=== PATIENT | female | born 1985 | race Caucasian/White ===

== ENCOUNTER 2018-01-10 16:48 | Emergency (ER) | payer SELFPAY ==
[2018-01-10 17:51] LABS: BASOPHILS 0.4 % (0-2); EOSINOPHILS 0.6 % (0-7); HEMATOCRIT 34.9 % (36.0-48.0); HEMOGLOBIN 11.2 g/dL (12-16); LYMPHOCYTES 32.4 % (15-50); MCH 27.1 pg (26.0-34.0); MCHC 32.1 g/dL (31.0-37.0); MCV 84.5 fL (80.0-100.0); MEAN PLATELET VOLUME 9.4 fL (7.4-10.4); MONOCYTES 9.2 % (2-11); NEUTROPHILS 57.4 % (40-80); PLATELET COUNT 270 10x3/uL (130-400); RBC 4.13 10x6/uL (4.00-5.40); RDW 14.9 % (11.5-14.5); WBC 4.9 10x3/uL (4.8-10.8)
[2018-01-10 18:02] LABS: HCG SERUM NEGATIVE (NEGATIVE)
== END 2018-01-10 18:50 | disposition home or self-care (01) ==
LOC: D.ER 16:48
PROVIDERS: Emergency Medicine
DX: O03.9 Complete or unspecified spontaneous abortion without complication (principal); I10 Essential (primary) hypertension

== ENCOUNTER 2018-10-16 21:33 | Emergency (ER) | payer SELFPAY ==
[~2018-10-16] VITALS: Ht 162.6 cm; Wt 69.8 kg
[2018-10-16 21:45] VITALS: Ht 162.6 cm; Wt 69.8 kg
[2018-10-16 22:31] LABS: APPEARANCE CLEAR (CLEAR); COLOR ORANGE (YELLOW)
[2018-10-16 22:32] LABS: BACTERIA FEW /hpf (NONE SEEN); BILIRUBIN NEGATIVE (NEGATIVE); EPITHELIAL CELLS >50 /hpf (0-5); GLUCOSE NEGATIVE (NEGATIVE); KETONE NEGATIVE (NEGATIVE); NITRITE POSITIVE (NEGATIVE); PROTEIN NEGATIVE (NEGATIVE); RED CELLS - URINE OCC /hpf (0-5); UROBILINOGEN NORMAL (NORMAL); WHITE CELLS - URINE >50 /hpf (0-5)
[2018-10-16] MEDS ORDERED: NAPROXEN SODIU550 M1 PO (22:48)
[2018-10-16] MEDS ORDERED: MACROBID100 MG PO (22:48)
[2018-10-16] MEDS ORDERED: TORADOL10 MG PO (22:48)
[2018-10-16 23:39] VITALS: BP 119/77
== END 2018-10-16 23:41 | disposition home or self-care (01) ==
LOC: D.ER 21:33
PROVIDERS: Family Medicine
DX: N30.90 Cystitis, unspecified without hematuria (principal); R31.9 Hematuria, unspecified; F17.200 Nicotine dependence, unspecified, uncomplicated